=== PATIENT | male | born 1960 | race Caucasian/White ===

== ENCOUNTER 2019-01-21 10:55 | Emergency (ER) | payer MEDICARE ==
[~2019-01-21] VITALS: Ht 175.3 cm; Wt 72.6 kg
[2019-01-21 11:02] VITALS: BP 127/81
== END 2019-01-21 11:35 | disposition left against medical advice (07) ==
LOC: M.ERS 10:55
DX: K40.90 Unilateral inguinal hernia, without obstruction or gangrene, not specified as recurrent (principal); F17.210 Nicotine dependence, cigarettes, uncomplicated

== ENCOUNTER 2019-01-24 02:03 | Emergency (ER) | payer MEDICARE ==
[~2019-01-24] VITALS: Ht 175.3 cm; Wt 72.6 kg
[2019-01-24] MEDS ORDERED: INVEGA SUS39 MG/0.25 (02:13)
[2019-01-24 02:30] VITALS: BP 129/72
== END 2019-01-24 02:30 | disposition left against medical advice (07) ==
LOC: M.ERS 02:03
DX: K40.90 Unilateral inguinal hernia, without obstruction or gangrene, not specified as recurrent (principal); F17.210 Nicotine dependence, cigarettes, uncomplicated